=== PATIENT | male | born 1960 | race Two or more races ===

== ENCOUNTER 2023-04-11 05:30 | Day surgery (SDC) | payer OTHER ==
[2023-04-04 11:46] LABS: HEMATOCRIT 46.8 % (39.0-48.0); HEMOGLOBIN 16.1 g/dL (13-16.00); MEAN CELL VOLUME 95.3 fL (80.0-100.00); MEAN CORPUSCULAR HEMOGLOBIN 32.8 pg (27.00-32.0); MEAN CORPUSCULAR HGB CONC 34.4 g/dl (32.0-36.0); PLATELET COUNT 318 K/uL (150-450); RED BLOOD COUNT 4.91 M/uL (4.00-6.00); RED CELL DISTRIBUTION WIDTH 13.2 % (11.5-14.5)
[2023-04-04 12:29] LABS: ALBUMIN 4.3 gm/dL (3.4-5.0); BILIRUBIN TOTAL 0.53 mg/dL (0.3-1.2); CALCIUM 9.6 mg/dL (8.5-10.1); CREATININE SERUM 1.09 mg/dL (0.70-1.30); GFR 68.11; GLOBULINA 4.1 G/DL (2.4-3.5); POTASSIUM 4.45 mEq/L (3.5-5.1); TOTAL PROTEIN 8.4 gm/dL (6.4-8.2)
[2023-04-04 12:37] LABS: INR 1.02; PARTIAL THROMBOPLASTIN TIME 37.5 SECONDS (22.0-34.0); PROTHROMBIN TIME 10.7 SECONDS (9.0-11.5)
[2023-04-04 12:48] LABS: URINE APPEARANCE Clear; URINE BILIRRUBIN Negative (NEGATIVE); URINE BLOOD Negative; URINE COLOR Yellow; URINE GLUCOSE Negative (NEGATIVE); URINE LEUKOCYTE Negative; URINE NITRATE Negative; URINE PROTEIN Negative (NEGATIVE); URINE RBC 3.5 uL (0.0-20.8); URINE UROBILINOGEN 0.2 E.U./dl
[2023-04-04 12:49] LABS: URINE BACTERIA 2.5 uL (0.0-1933); URINE EPITHELIAL CELLS 0.9 uL (0.0-38.8); URINE WBC 0.9 uL (0.0-23.2)
[~2023-04-11] VITALS: Ht 193 cm; Wt 95.3 kg
[~2023-04-11 05:30] MED LIST: LIPITOR20 MG PO
[2023-04-11] MEDS ORDERED: KETOROLAC TROMETHAMINE 30 MG VIAL ONE (06:38)
[2023-04-11] MEDS ORDERED: BUPIVACAINE HCL/PF 0.5% 30ML ML ONE (06:39)
[2023-04-11] MEDS ORDERED: LIDOCAINE HCL/EPINEPHRINE 20 ML VIAL IJ ONE ×2 (06:40→07:30)
[2023-04-11] MEDS ORDERED: CLINDAMYCIN PHOSPHATE 150 MG/ML (900mg) ONE (06:59)
[2023-04-11] MEDS ORDERED: ISOPROPYL ALCOHOL 30 ML OUNCE TOP ONE (07:30)
[2023-04-11] MEDS ORDERED: KETOROLAC TROMETHAMINE 30 MG VIAL IJ ONE (07:30)
[2023-04-11] MEDS ORDERED: CLINDAMYCIN PHOSPHATE 150 MG/ML (900mg) IV ONE (07:30)
[2023-04-11] MEDS ORDERED: BUPIVACAINE HCL/PF 0.5% 5MG/ML VIAL IJ ONE (07:30)
[2023-04-11] MEDS ORDERED: KETOROLAC TROMETHAMINE 30 MG VIAL IV ONE (07:30)
[2023-04-11] MEDS ORDERED: hydrALAZINE HCL 20 MG VIAL ONE (10:23)
== END 2023-04-11 12:50 | disposition home or self-care (01) ==
LOC: CIR.AMB 05:30
PROVIDERS: ATTEND Orthopaedic Surgery
DX: M75.122 Complete rotator cuff tear or rupture of left shoulder, not specified as traumatic (principal); M75.22 Bicipital tendinitis, left shoulder; Z88.0 Allergy status to penicillin; Z20.822 Contact with and (suspected) exposure to COVID-19